=== PATIENT | female | born 1980 | race Caucasian/White ===

== ENCOUNTER → 2021-06-27 | Outpatient (CLI) | payer BC | LOC: KOH-I 13:37 | DX: M79.671 Pain in right foot (principal); M19.071 Primary osteoarthritis, right ankle and foot | CPT/HCPCS: 73630 ==

== ENCOUNTER 2022-03-05 17:54 | Emergency (ER) | payer OTHER ==
[2022-03-05 18:34] LABS: HEMOGLOBIN 14.3 gm/dl (12.3-15.3); RED BLOOD COUNT 4.59 M/UL (4.00-5.10); WHITE BLOOD COUNT 17.1 K/UL (4.5-11.0)
[2022-03-05 18:48] LABS: BUN/CREATININE RATIO 13 (0-10)
== END 2022-03-05 22:35 | disposition home or self-care (01) ==
LOC: ER1 17:54
PROVIDERS: Family Medicine
DX: R10.9 Unspecified abdominal pain (principal); R10.813 Right lower quadrant abdominal tenderness; Z87.442 Personal history of urinary calculi; F17.210 Nicotine dependence, cigarettes, uncomplicated
CPT/HCPCS: 80053; 81001; 85025; 96374; 96375; 99284; J1885; J2405; Q9967